=== PATIENT | male | born 1955 | race Caucasian/White ===

== ENCOUNTER → 2022-11-29 11:43 | Outpatient (CLI) | payer MEDICARE, SELFPAY ==
--- NOTE | 2022-11-29 | DI.RAD.S_ITS ---
PROCEDURE: XR RIBS LT MIN 3V W CXR1V INDICATIONS: left-sided rib pain TECHNIQUE: 2 views of the right ribs were acquired, along with a single view chest. COMPARISON: None. FINDINGS: Surgical changes and devices: None. Bones and chest wall: No fractures or dislocations. No suspicious bony lesions. Overlying soft tissues appear unremarkable. Lungs and pleura: No pleural effusions or pneumothorax. Lungs appear clear. Mediastinum: Mediastinal contours appear normal. Heart size is normal. IMPRESSION: No acute cardiopulmonary abnormality. Dictated by: Chung Zhu M.D. on 11/29/2022 at 13:54 Approved by: Chung Zhu M.D. on 11/29/2022 at 13:55
== END ==
PROVIDERS: Family Provider Family Medicine; PCP Internal Medicine; Referring Provider Internal Medicine; Visit Provider Internal Medicine
DX: R07.81 Pleurodynia (principal)
CPT/HCPCS: 71101

== ENCOUNTER → 2024-01-07 09:15 | Outpatient (CLI) | payer MEDICARE, SELFPAY ==
--- NOTE | 2024-01-07 09:17 | DI.ECHO.S_ITS ---
[place] +---------+ [facility] : : [address] : : [place] : : [id number] : : Phone: [phone] Echocardiogram Report + + :Name: DEE FRANCES Study Date: 01/07/2024 Height: 74 in : :[facility] ReadingLocation: Weight: 200 lb : : Gender: Male BSA: 2.2 m2 : :: 1955 Age: 68 yrs BP: 124/81 mmHg: :Reason For Study: MURMUR : :Ordering Physician: EMMY, : :NELLY Performed By: Emi Rubin : :Referring: NELLY BOOTH : + + Interpretation Summary Normal left ventricle size with ejection fraction 60-65%. Moderate biatrial enlargement. Moderate mitral valve prolapse. Moderate to severe mitral regurgitation. Procedure: A two-dimensional transthoracic echocardiogram with color flow and Doppler was performed. The study quality was technically adequate. There is no prior echocardiogram noted for this patient. The patient was in sinus bradycardia with heart rates between 53-62 bpm during the exam. Left Ventricle: The left ventricle is normal in size and wall thickness. The ejection fraction is estimated to be 60-65%. There are no focal wall motion abnormalities. Diastolic function could not be accurately assessed due to confounding valvular disease. Right Ventricle: The right ventricle is normal in size and function. Atria: There is moderate biatrial enlargement. There is no Doppler evidence for an interatrial shunt. Mitral Valve: There is moderate mitral valve prolapse. There is moderate to severe mitral regurgitation. The mitral regurgitant jet is eccentrically directed. Aortic Valve: The aortic valve is trileaflet. The aortic valve opens well. There is no aortic valve stenosis. No aortic regurgitation is present. Tricuspid Valve: The tricuspid valve is normal in structure and function. There is trace tricuspid regurgitation. Pulmonary artery pressures cannot be estimated because of the lack of a measurable TR jet velocity. Pulmonic Valve: The pulmonic valve leaflets are thin and pliable; valve motion is normal. There is trace pulmonic regurgitation. Great Vessels: The aortic root is normal size. The dimensions of the ascending aorta are normal. The IVC is of normal diameter and collapses greater than 50% with a sniff. This suggests a low right atrial pressure of 3 mm Hg. Pericardium/ Pleura There is no pericardial effusion. There is no pleural effusion. MMode/2D Measurements & Calculations LVIDd: 5.5 cm LVOT diam: 2.4 cm LVIDs: 3.5 cm Ao root diam: 3.7 cm FS: 36.5 % asc Aorta Diam: 3.4 cm IVSd: 1.0 cm Ao Arch Diam (Prox Trans): 2.6 cm LVPWd: 1.0 cm LV killian. diameter/BSA (cm/m^2): 2.6 LV sys. diameter/BSA (cm/m^2): 1.6 LA A2 area: 28.8 cm2 RA long axis: 6.3 cm LA A4 area: 28.7 cm2 RA area: 28.1 cm2 LA length (vol): 7.0 cm RA vol: 106.8 ml LA vol: 100.4 ml RA : 49.1 ml/m2 LA vol index: 46.2 ml/m2 IVC diam: 1.2 cm RVD1 (basal): 4.7 cm RVD2 (mid): 3.2 cm TAPSE: 2.4 cm Doppler Measurements & Calculations Ao V2 max: 109.4 cm/sec LVOT Max George: 72.0 cm/sec Ao V2 mean: 72.2 cm/sec LV V1 max P.1 mmHg Ao max P.8 mmHg LV V1 VTI: 13.9 cm Ao mean P.4 mmHg CIERA(I,D): 2.5 cm2 Ao V2 VTI: 24.2 cm CIERA(V,D): 2.9 cm2 sev ratio: 0.58 CIERA indexed to BSA (cm^2/m^2): 1.2 MV E max george: 85.2 cm/sec PA V2 max: 106.0 cm/sec MV A max george: 34.6 cm/sec PA V2 mean: 71.8 cm/sec MV E/A: 2.5 PA mean P.3 mmHg Med Peak E' George: 3.6 cm/sec PA pr(Accel): 46.5 mmHg E/E' med: 23.4 Lat Peak E' George: 15.8 cm/sec E/E' lat: 5.4 E/e' average: 14.4 MV dec time: 0.22 sec SV(LVOT): 60.8 ml Electronically signed by: Margaret Freitas on Reading Physician:01/07/2024 05:54 PM
== END ==
PROVIDERS: Family Provider Family Medicine; PCP Internal Medicine; Referring Provider Internal Medicine; Visit Provider Internal Medicine
DX: I34.0 Nonrheumatic mitral (valve) insufficiency (principal); I34.1 Nonrheumatic mitral (valve) prolapse; R01.1 Cardiac murmur, unspecified
CPT/HCPCS: 93306

== ENCOUNTER → 2024-04-07 07:46 | Outpatient (CLI) | payer MEDICARE, SELFPAY ==
--- NOTE | 2024-04-07 07:47 | DI.NM.S_ITS ---
PROCEDURE: NM EXERCISE TREADMILL NON NUC COMPARISON: None. INDICATIONS: MITRAL VALVE PROLAPSE,NONRHEUMATIC VALV REGURG FINDINGS: Patient exercised per the standard Tomi protocol. Total exercise time was 10 minutes 0 seconds. Test terminated secondary to fatigue. Maximal heart rate is 152 bpm which is 116% of max impacted heart rate. Maximum blood pressure was 182/[place] [address]. CONNER -27%. 10.7 METs. No ischemic changes noted. Frequent PVCs and nonsustained ventricular tachycardia noted in recovery. No chest pains voiced. Normal heart rate and blood pressure response to exercise. IMPRESSION: 1. Positive exercise treadmill stress test for ischemia due to the presence of nonsustained ventricular tachycardia. 2. Above average exercise tolerance. Dictated by: Rashad Michaud M.D. on 04/07/2024 at 16:26 Approved by: Rashad Michaud M.D. on 04/07/2024 at 16:28
== END ==
PROVIDERS: Family Provider Family Medicine; PCP Internal Medicine; Referring Provider Internal Medicine Cardiovascular Disease; Visit Provider Internal Medicine Cardiovascular Disease
DX: I34.1 Nonrheumatic mitral (valve) prolapse (principal); I34.0 Nonrheumatic mitral (valve) insufficiency; R94.39 Abnormal result of other cardiovascular function study
CPT/HCPCS: 93017